=== PATIENT | male | born 1955 | race Caucasian/White ===

== ENCOUNTER 2019-02-01 15:41 | Observation (INO) | payer OTHER ==
[2019-02-01] MEDS ORDERED: ASPIRIN 81 MG CHEWABLE TABLET ONE (16:00)
[2019-02-01] MEDS ORDERED: NA CHLORIDE 0.9% 1,000 ML ONE (16:00)
--- NOTE | 2019-02-01 16:02 | EDPHYS ---
Physician Documentation [facility] Name: Frank Chowdhury Age: 63 yrs Sex: Male : 1955 Arrival Date: 02/01/2019 Time: 15:38 Bed 27 Private MD: ED Physician Herb Albright HPI: 02/01 15:53 This 63 yrs old Male presents to ER via EMS with complaints of Palpitations, daniela Shoulder Pain. 15:53 The patient presents with a history of irregular heart beat, heart skipping beats. daniela Context: The symptoms occur with light activity. Onset: The symptoms/episode began/occurred just prior to arrival, this morning. Duration: The patient or guardian reports multiple episodes, with no pattern. Modifying factors: The symptoms are aggravated by nothing. The symptoms are alleviated by nothing. Associated signs and symptoms: The patient has no apparent associated signs or symptoms. Severity of symptoms: At their worst the symptoms were mild in the emergency department the symptoms are unchanged. The patient has not experienced similar symptoms in the past. Historical: - Allergies: 15:56 No Known Allergies; sv - PMHx: 15:56 Bipolar disorder; sv - Immunization history:: Adult Immunizations up to date. - Social history:: Smoking status: Patient uses tobacco products, smokes 1.5 packs per day. - Ebola Screening: : No symptoms or risks identified at this time. - Family history:: not pertinent. ROS: 15:53 Constitutional: Negative for fever, chills, and weight loss, Eyes: Negative for injury, daniela pain, redness, and discharge, ENT: Negative for injury, pain, and discharge, Neck: Negative for injury, pain, and swelling, Respiratory: Negative for shortness of breath, cough, wheezing, and pleuritic chest pain, Abdomen/GI: Negative for abdominal pain, nausea, vomiting, diarrhea, and constipation, Back: Negative for injury and pain, : Negative for injury, bleeding, discharge, and swelling, MS/Extremity: Negative for injury and deformity, Skin: Negative for injury, rash, and discoloration, Neuro: Negative for headache, weakness, numbness, tingling, and seizure, Psych: Negative for depression, anxiety, suicide ideation, homicidal ideation, and hallucinations, Allergy/Immunology: Negative for hives, rash, and allergies, Endocrine: Negative for neck swelling, polydipsia, polyuria, polyphagia, and marked weight changes, Hematologic/Lymphatic: Negative for swollen nodes, abnormal bleeding, and unusual bruising. 15:53 Cardiovascular: Positive for chest pain, of the chest. Exam: 15:53 Constitutional: This is a well developed, well nourished patient who is awake, alert, daniela and in no acute distress. Head/Face: Normocephalic, atraumatic. Eyes: Pupils equal round and reactive to light, extra-ocular motions intact. Lids and lashes normal. Conjunctiva and sclera are non-icteric and not injected. Cornea within normal limits. Periorbital areas with no swelling, redness, or edema. ENT: Nares patent. No nasal discharge, no septal abnormalities noted. Tympanic membranes are normal and external auditory canals are clear. Oropharynx with no redness, swelling, or masses, exudates, or evidence of obstruction, uvula midline. Mucous membranes moist. Neck: Trachea midline, no thyromegaly or masses palpated, and no cervical lymphadenopathy. Supple, full range of motion without nuchal rigidity, or vertebral point tenderness. No Meningismus. Chest/axilla: Normal chest wall appearance and motion. Nontender with no deformity. No lesions are appreciated. Cardiovascular: Regular rate and rhythm with a normal S1 and S2. No gallops, murmurs, or rubs. Normal PMI, no JVD. No pulse deficits. Respiratory: Lungs have equal breath sounds bilaterally, clear to auscultation and percussion. No rales, rhonchi or wheezes noted. No increased work of breathing, no retractions or nasal flaring. Abdomen/GI: Soft, non-tender, with normal bowel sounds. No distension or tympany. No guarding or rebound. No evidence of tenderness throughout. Back: No spinal tenderness. No costovertebral tenderness. Full range of motion. Male : Normal genitalia with no discharge or lesions. Skin: Warm, dry with normal turgor. Normal color with no rashes, no lesions, and no evidence of cellulitis. MS/ Extremity: Pulses equal, no cyanosis. Neurovascular intact. Full, normal range of motion. Neuro: Awake and alert, GCS 15, oriented to person, place, time, and situation. Cranial nerves II-XII grossly intact. Motor strength 5/5 in all extremities. Sensory grossly intact. Cerebellar exam normal. Normal gait. Psych: Awake, alert, with orientation to person, place and time. Behavior, mood, and affect are within normal limits. 15:53 Musculoskeletal/extremity: DVT Exam: No signs of deep vein thrombosis. no pain, no swelling, no tenderness, negative Homans' sign noted on exam, no appreciated bluish discoloration, no erythema, no increased warmth. Vital Signs: 15:35 BP 156 / 89; Pulse 96; Resp 17; Temp 98.5; Pulse Ox 98% ; Weight 78.47 kg; Height 6 ft. sv 0 in. (182.88 cm); Pain 0/10; 16:00 BP 131 / 83; Pulse 82; Resp 16; Pulse Ox 97% on R/A; sv 17:05 BP 139 / 81; Pulse 83; Resp 19; Temp 98.6; Pulse Ox 97% on R/A; sv 15:35 Body Mass Index 23.46 (78.47 kg, 182.88 cm) sv MDM: 15:38 Patient medically screened. [facility] 15:58 Data reviewed: vital signs, nurses notes, lab test result(s), EKG, radiologic studies, daniela plain films. 02/01 15:39 Order name: Basic Metabolic Panel; Complete Time: 17:10 02/01 15:39 Order name: CBC with Diff; Complete Time: 17:10 02/01 15:39 Order name: LFT's; Complete Time: 17:10 02/01 15:39 Order name: Magnesium; Complete Time: 17:10 02/01 15:39 Order name: NT PRO-BNP; Complete Time: 17:10 02/01 15:39 Order name: PT-INR; Complete Time: 17:10 02/01 15:39 Order name: Troponin (emerg Dept Use Only); Complete Time: 17:10 02/01 15:39 Order name: XRAY Chest (1 view); Complete Time: 17:10 02/01 15:40 Order name: TSH; Complete Time: 17:10 [facility] 02/01 15:41 Order name: Lipase; Complete Time: 17:10 [facility] 02/01 15:53 Order name: [place]; Complete Time: 17:10 [facility] 02/01 16:55 Order name: Urine Dipstick--Ancillary (enter results) 02/01 17:22 Order name: Urine Dipstick-Ancillary EDMS 02/01 15:39 Order name: EKG; Complete Time: 15:44 sv 02/01 15:39 Order name: Cardiac monitoring; Complete Time: 15:42 sv 02/01 15:39 Order name: EKG - Nurse/Tech; Complete Time: 15:42 sv 02/01 15:39 Order name: IV Saline Lock; Complete Time: 15:42 sv 02/01 15:39 Order name: Labs collected and sent; Complete Time: 15:42 sv 02/01 15:39 Order name: O2 Per Protocol; Complete Time: 15:42 sv 02/01 15:39 Order name: O2 Sat Monitoring; Complete Time: 15:42 sv 02/01 15:41 Order name: Urine Dipstick-Ancillary (obtain specimen); Complete Time: 16:32 [facility] Administered Medications: 15:53 Drug: NS 0.9% 1000 ml Route: IV; Rate: 125 ml/hr; Site: left hand; sv 17:24 Follow up: Response: No adverse reaction; IV Status: Infusion continued upon admission sv 15:53 Drug: Aspirin Chewable Tablet 162 mg Route: PO; sv 16:09 Follow up: Response: No adverse reaction sv 16:33 Drug: Lovenox 1 mg/kg Route: Sub-Q; Site: left lower abdomen; sv 16:46 Follow up: Response: No adverse reaction sv 16:33 Drug: Pepcid 20 mg Route: IVP; Site: left hand; sv 16:46 Follow up: Response: No adverse reaction sv 16:34 Drug: Lopressor 25 mg Route: PO; sv 16:46 Follow up: Response: No adverse reaction sv Disposition: 02/01/19 16:01 Hospitalization ordered by Joao Troncoso for Observation. Preliminary diagnosis are Chest pain, unspecified, Palpitations, Tobacco abuse counseling, Tobacco use. - Bed requested for Telemetry/MedSurg (observation). - Status is Observation. sv - Condition is Stable. - Problem is new. - Symptoms have improved. UTI on Admission? No Signatures: Dispatcher [employer] EDMS Kezia Zarate RN RN sv Woody, Diana, RN RN dw Anderson, Corey, MD MD cha Corrections: (The following items were deleted from the chart) 17:15 16:01 Hospitalization Ordered by Joao Troncoso MD for Observation. Preliminary diagnosis dw is Chest pain, unspecified; Palpitations; Tobacco abuse counseling; Tobacco use. Bed requested for Telemetry/MedSurg (observation). Status is Observation. Condition is Stable. Problem is new. Symptoms have improved. UTI on Admission? No. daniela 17:48 17:15 02/01/2019 16:01 Hospitalization Ordered by Joao Troncoso MD for Observation. sv Preliminary diagnosis is Chest pain, unspecified; Palpitations; Tobacco abuse counseling; Tobacco use. Bed requested for Telemetry/MedSurg (observation). Status is Observation. Condition is Stable. Problem is new. Symptoms have improved. UTI on Admission? No. dw
--- NOTE | 2019-02-01 16:02 | ER ---
Nurse's Notes [facility] Name: Frank Chowdhury Age: 63 yrs Sex: Male : 1955 Arrival Date: 02/01/2019 Time: 15:38 Bed 27 Private MD: Diagnosis: Chest pain, unspecified;Palpitations;Tobacco abuse counseling;Tobacco use Presentation: 02/01 15:32 Presenting complaint: EMS states: palpitations, dull in between shoulder pain started sv today. Pt was diaphoretic on scene. BP 168/98 HR-118 ST 96% RA, before arrival to ER O2 sat was 93% and was placed on O2 NC, 20G L hand. Transition of care: patient was not received from another setting of care. Onset of symptoms was February 01, 2019. Risk Assessment: Do you want to hurt yourself or someone else? Patient reports no desire to harm self or others. Initial Sepsis Screen: Does the patient meet any 2 criteria? No. Patient's initial sepsis screen is negative. Does the patient have a suspected source of infection? No. Patient's initial sepsis screen is negative. Care prior to arrival: Medication(s) given: ASA, 81 mg, x 2, IV initiated. 20 GA, in the left hand, Oxygen administered. via nasal cannula, Pt reports taking a Nitro x1 before getting the ambulance. 15:32 Method Of Arrival: EMS: [facility] sv 15:39 Acuity: DICKSON 2 sv Triage Assessment: 15:35 General: Appears in no apparent distress. comfortable, slender, well developed, sv Behavior is calm, cooperative, appropriate for age. Pain: Denies pain. Neuro: Level of Consciousness is awake, alert, obeys commands, Oriented to person, place, time, situation, Moves all extremities. Full function Speech is normal. Cardiovascular: Reports palpitations. Respiratory: Respiratory effort is even, unlabored, Respiratory pattern is regular, symmetrical. Derm: Skin is pink, warm \T\ dry. Historical: - Allergies: 15:56 No Known Allergies; sv - PMHx: 15:56 Bipolar disorder; sv - Immunization history:: Adult Immunizations up to date. - Social history:: Smoking status: Patient uses tobacco products, smokes 1.5 packs per day. - Ebola Screening: : No symptoms or risks identified at this time. - Family history:: not pertinent. Screenin:40 Abuse screen: Denies threats or abuse. Denies injuries from another. Nutritional sv screening: No deficits noted. Tuberculosis screening: No symptoms or risk factors identified. Fall Risk None identified. Assessment: 16:33 Reassessment: Patient appears in no apparent distress at this time. No changes from sv previously documented assessment. Patient and/or family updated on plan of care and expected duration. Pain level reassessed. Patient is alert, oriented x 3, equal unlabored respirations, skin warm/dry/pink. Family at the bedside. Vital Signs: 15:35 BP 156 / 89; Pulse 96; Resp 17; Temp 98.5; Pulse Ox 98% ; Weight 78.47 kg; Height 6 ft. sv 0 in. (182.88 cm); Pain 0/10; 16:00 BP 131 / 83; Pulse 82; Resp 16; Pulse Ox 97% on R/A; sv 17:05 BP 139 / 81; Pulse 83; Resp 19; Temp 98.6; Pulse Ox 97% on R/A; sv 15:35 Body Mass Index 23.46 (78.47 kg, 182.88 cm) sv ED Course: 15:38 Patient arrived in ED. sv 15:38 Herb Albright MD is Attending Physician. daniela 15:38 Kezia Zarate, EMMANUEL is Primary Nurse. sv 15:39 Triage completed. sv 15:40 EKG done, by technologies division chair. reviewed by Herb Albright MD. at1 15:40 Initial lab(s) drawn, by ED staff, sent to lab. sv 15:40 Arm band placed on. sv 15:40 Patient has correct armband on for positive identification. Placed in gown. Bed in low sv position. Call light in reach. Side rails up X2. telemetry monitor on. Pulse ox on. NIBP on. Door closed. Head of bed elevated. 16:00 Joao Troncoso MD is Hospitalizing Provider. daniela 16:02 Awaiting lab results, Awaiting radiology results. sv 16:02 X-ray(s) taken. sv 16:10 X-ray completed. Portable x-ray completed in exam room. Patient tolerated procedure mh1 well. 16:11 XRAY Chest (1 view) In Process Unspecified. EDMS 17:06 Awaiting bed assignment. sv 17:23 Urine Dipstick--Ancillary (enter results) Sent. sv 17:28 No provider procedures requiring assistance completed. Patient admitted, IV remains in sv place. intact. Administered Medications: 15:53 Drug: NS 0.9% 1000 ml Route: IV; Rate: 125 ml/hr; Site: left hand; sv 17:24 Follow up: Response: No adverse reaction; IV Status: Infusion continued upon admission sv 15:53 Drug: Aspirin Chewable Tablet 162 mg Route: PO; sv 16:09 Follow up: Response: No adverse reaction sv 16:33 Drug: Lovenox 1 mg/kg Route: Sub-Q; Site: left lower abdomen; sv 16:46 Follow up: Response: No adverse reaction sv 16:33 Drug: Pepcid 20 mg Route: IVP; Site: left hand; sv 16:46 Follow up: Response: No adverse reaction sv 16:34 Drug: Lopressor 25 mg Route: PO; sv 16:46 Follow up: Response: No adverse reaction sv Outcome: 16:01 Decision to Hospitalize by Provider. daniela 17:28 Admitted to Tele accompanied by kirill, family with patient, via stretcher, room 407, sv with chart, Report called to Soraida BENITEZ 17:28 Condition: stable 17:28 Instructed on the need for admit. 17:48 Patient left the ED. sv Signatures: Dispatcher [employer] Kezia Alicea RN RN Herb Albright MD MD cha Harvey, Martha 1 Sarah Mcguire, filing and polishing supervisor EKG Tat1 Corrections: (The following items were deleted from the chart) 16:00 15:32 Care prior to arrival: None. sv sv
[2019-02-01 16:03] LABS: Absolute Lymphocytes (CBC) 2.6 K/uL (0.7-4.9); Absolute Monocytes 0.8 K/uL (0.1-1.3); Absolute Neutrophil 6.5 K/uL (1.8-8.0); Basophils % 0.9 % (0-1.3); Eosinophils % 1.9 % (0-4.4); Hematocrit 41.7 % (39.6-49.0); Lymphocytes % 25.5 % (15.3-44.8); MPV 7.9 fL (7.6-11.3); Monocytes % 7.8 % (3.3-12.3); RBC Red Blood Cell Count 4.25 M/uL (4.33-5.43)
[2019-02-01 16:06] LABS: Protime INR 0.89
--- NOTE | 2019-02-01 16:24 | RAD REPORT ---
EXAM DESCRIPTION: RAD - Chest Single View - 02/01/2019 4:10 pm CLINICAL HISTORY: PALPITATIONS Chest pain. COMPARISON: No comparisons FINDINGS: Portable technique limits examination quality. The lungs are mildly emphysematous but grossly clear. The heart is normal in size. No displaced fract ures. IMPRESSION: No acute intrathoracic process suspected.
[2019-02-01 16:31] LABS: ALT/SGPT 22 U/L (12-78); AST/SGOT 13 U/L (15-37); Alkaline Phosphatase 118 U/L (45-117); BUN Blood Urea Nitrogen 18 mg/dL (7-18); Bicarbonate 26 mmol/L (21-32); Bilirubin Direct < 0.1 mg/dL (0-0.2); Bilirubin Total 0.3 mg/dL (0.2-1.0); Glucose Level 104 mg/dL (74-106); Lipase 180 U/L (73-393); Magnesium 2.2 mg/dL (1.8-2.4); NT PRO-BNP 151 pg/mL (<125); Potassium 3.5 mmol/L (3.5-5.1); Protein, Total 7.7 g/dL (6.4-8.2); Sodium Level 141 mmol/L (136-145); Troponin (Emerg Dept Use Only) 0.04 ng/mL (0.0-0.045)
[2019-02-01] MEDS ORDERED: ENOXAPARIN 80 MG/0.8 ML SQ ONE (16:35)
[2019-02-01] MEDS ORDERED: METOPROLOL TAR 25 MG TAB ONE (16:35)
[2019-02-01] MEDS ORDERED: FAMOTIDINE 20 MG/2 ML VIAL IV ONE (16:36)
--- NOTE | 2019-02-01 16:47 | P.HP ---
Certification for Inpatient Patient admitted to: Observation With expected LOS: <2 Midnights Practitioner: I am a practitioner with admitting privileges, knowledge of patient current condition, hospital course, and medical plan of care. Services: Services provided to patient in accordance with Admission requirements found in Title 42 Section 412.3 of the Code of Federal Regulations Patient History Date of Service: 02/01/19 Reason for admission: Chest pain History of Present Illness: This is a 63 yr old current smoker male with a history of bipolar disorder admitted for chest pain and palpitations. The patient, palpitations started this morning along with chest discomfort. He has been cutting down on caffeine , but continues to smoke 1 1/2 pack per day for 30+ years. He came to the ER to get his chest pain and palpitations evaluated. In the ER, initial VS were BP of 156/89, HR of 96, RR 17, Afeb at 98.5, 98% on RA. He has a BMI of 23.46. His lab work was remarkable for a troponin of 0.04 , other rodríguez was normal. CXR with emphysematous changes. At the time of my exam, he was AAOx3, in no acute distress and was HDS. He was admitted for chest pain, R/O ACS. Allergies No Known Allergies Allergy (Verified 02/01/19 16:42) Home medications list reviewed: Yes - Past Medical/Surgical History -: Bipolar Disease - Family History Father -: Heart disease Mother -: Other (see notes) Notes: alzheimers - Social History Smoking Status: Current every day smoker Review of Systems 10-point ROS is otherwise unremarkable Physical Examination - Physical Exam General: Alert, In no apparent distress, Oriented x3 HEENT: Atraumatic, PERRLA, Mucous membr. moist/pink, EOMI, Sclerae nonicteric Neck: Supple, 2+ carotid pulse no bruit, No LAD, Without JVD or thyroid abnormality Respiratory: Clear to auscultation bilaterally, Normal air movement Cardiovascular: Regular rate/rhythm, Normal S1 S2 Gastrointestinal: Normal bowel sounds, No tenderness Musculoskeletal: No tenderness Integumentary: No rashes Neurological: Normal gait, Normal speech, Normal strength at 5/5 x4 extr, Normal tone, Normal affect Lymphatics: No axilla or inguinal lymphadenopathy - Studies Laboratory Data (last 24 hrs) 02/01/19 15:48: PT 10.5, INR 0.89 02/01/19 15:48: WBC 10.2, Hgb 14.4, Hct 41.7, Plt Count 291 02/01/19 15:48: Sodium 141, Potassium 3.5, BUN 18, Creatinine 1.18, Glucose 104 , Magnesium 2.2, Total Bilirubin 0.3, AST 13 L, ALT 22, Alkaline Phosphatase 118 H, Lipase 180 Assessment and Plan - Problems (Diagnosis) (1) Chest pain, rule out acute myocardial infarction Current Visit: Yes Status: Acute Plan: Risk factors: Age, Smoking history, - Chest pain Guideline: BB, Statin, ASA, plavix - Morphine and nitro prn pain. - Trend troponins x 2 - ECHO ordered, pending - Stress test - Cardiology consult - NPO after midnight. (2) Nicotine dependence Current Visit: Yes Status: Acute Plan: Counseled on Smoking cessation Qualifiers: Nicotine product type: cigarettes Substance use status: uncomplicated Qualified Code(s): F17.210 - Nicotine dependence, cigarettes, uncomplicated (3) Bipolar disease, chronic Current Visit: No Status: Chronic Plan: Stable [place] levels pending Will restart home medications. - Plan Admit to floor with tele, pending cardiology workup. Anticipate discharge in the next 24 hr. - Advance Directives Does patient have a Living Will: No Does patient have a Durable POA for Healthcare: No
[2019-02-01 17:20] LABS: Urine Blood NEGATIVE (NEG); Urine Glucose NEGATIVE (NEG); Urine Protein 1+ (NEG)
[2019-02-01] MEDS ORDERED: MORPHINE 2 MG/ML SYR IV PRN (18:00)
[2019-02-01] MEDS ORDERED: NITROGLYCERIN 0.4 MG/TAB SL PRN (18:00)
[2019-02-01] MEDS: METOPROLOL TAR 25 MG TAB PO SCH (18:00)
[2019-02-01] MEDS ORDERED: ALBUTEROL 2.5 MG/3 ML NEB SOL NEB PRN (18:00)
[2019-02-01] MEDS ORDERED: KCL 20 MEQ/100 mL IVPB 20 MEQ/100 ML BAG IV SCH (20:00)
[2019-02-01] MEDS ORDERED: POTASSIUM 25 MEQ EFFERV TAB PO ONE (20:31)
[2019-02-01] MEDS ORDERED: ATORVASTATIN 40 MG TAB PO SCH (21:00)
[2019-02-02] MEDS: METOPROLOL TAR 25 MG TAB PO SCH (05:09)
[2019-02-02 06:21] LABS: Absolute Lymphocytes (CBC) 2.4 K/uL (0.7-4.9); Absolute Monocytes 0.7 K/uL (0.1-1.3); Absolute Neutrophil 4.4 K/uL (1.8-8.0); Basophils % 0.9 % (0-1.3); Eosinophils % 2.3 % (0-4.4); Hematocrit 39.5 % (39.6-49.0); Lymphocytes % 30.9 % (15.3-44.8); MPV 8.2 fL (7.6-11.3); Monocytes % 8.9 % (3.3-12.3); RBC Red Blood Cell Count 4.03 M/uL (4.33-5.43)
[2019-02-02 06:38] LABS: Albumin 3.5 g/dL (3.4-5.0); Bilirubin Total 0.4 mg/dL (0.2-1.0); Phosphorus 2.8 mg/dL (2.5-4.9); Potassium 4.5 mmol/L (3.5-5.1); Protein, Total 7.1 g/dL (6.4-8.2)
--- NOTE | 2019-02-02 07:18 | EKG ---
Test Date: 2019-02-01 Test Time: 15:38:05 Sole Filler: CHERI MEASUREMENT RESULTS: Intervals: Rate: 95 OK: 134 QRSD: 84 QT: 360 QTc: 452 [place]: P: 73 OK: 134 QRS: 80 T: 19 INTERPRETIVE STATEMENTS: Normal sinus rhythm ST abnormality, possible digitalis effect Abnormal ECG No previous ECG available for comparison Electronically Signed On 02-02-19 07:15:47 CDT by Ean Blandon
[2019-02-02] MEDS ORDERED: ASPIRIN EC 81 MG TAB PO SCH (09:00)
[2019-02-02] MEDS ORDERED: CLOPIDOGREL 75 MG TABLET PO SCH (09:00)
[2019-02-02] MEDS ORDERED: REGADENOSON 0.4 MG/5 ML SYR IV ONE (09:33)
--- NOTE | 2019-02-02 11:58 | P.SSS ---
Patient History Date of Service: 02/02/19 Reason for admission: Chest pain History of Present Illness: This is a 63 yr old current smoker male with a history of bipolar disorder admitted for chest pain and palpitations. The patient, palpitations started this morning along with chest discomfort. He has been cutting down on caffeine , but continues to smoke 1 1/2 pack per day for 30+ years. He came to the ER to get his chest pain and palpitations evaluated. In the ER, initial VS were BP of 156/89, HR of 96, RR 17, Afeb at 98.5, 98% on RA. He has a BMI of 23.46. His lab work was remarkable for a troponin of 0.04 , other rodríguez was normal. CXR with emphysematous changes. At the time of my exam, he was AAOx3, in no acute distress and was HDS. He was admitted for chest pain, R/O ACS. Allergies No Known Allergies Allergy (Verified 02/01/19 16:42) Home medications list reviewed: Yes Home Medications: Aspirin [Aspir-Low] 81 mg PO DAILY #30 tablet. 02/02/19 Atorvastatin Calcium [Lipitor] 40 mg PO BEDTIME #30 tab 02/02/19 Clopidogrel Bisulfate [Plavix] 75 mg PO DAILY #30 tablet 02/02/19 Metoprolol Tartrate [Lopressor*] 25 mg PO BID 6AM 6PM #60 tab 02/02/19 - Past Medical/Surgical History Has patient received pneumonia vaccine in the past: No Diabetic: No -: Bipolar Disease - Family History Father -: Heart disease Mother -: Other (see notes) Notes: alzheimers - Social History Smoking Status: Current every day smoker Alcohol use: No CD- Drugs: No Caffeine use: No Place of Residence: Home Review of Systems 10-point ROS is otherwise unremarkable Physical Examination - Vital Signs Temperature: 97.9 F Blood Pressure: 136/93 Pulse: 74 Respirations: 18 Pulse Ox (%): 95 - Physical Exam General: Alert, In no apparent distress, Oriented x3 HEENT: Atraumatic, PERRLA, Mucous membr. moist/pink, EOMI, Sclerae nonicteric Neck: Supple, 2+ carotid pulse no bruit, No LAD, Without JVD or thyroid abnormality Respiratory: Clear to auscultation bilaterally, Normal air movement Cardiovascular: Regular rate/rhythm, Normal S1 S2 Gastrointestinal: Normal bowel sounds, No tenderness Musculoskeletal: No tenderness Integumentary: No rashes Neurological: Normal gait, Normal speech, Normal strength at 5/5 x4 extr, Normal tone, Normal affect Lymphatics: No axilla or inguinal lymphadenopathy - Studies Laboratory Data (last 24 hrs) 02/01/19 15:48: PT 10.5, INR 0.89 02/01/19 15:48: WBC 10.2, Hgb 14.4, Hct 41.7, Plt Count 291 02/01/19 15:48: Sodium 141, Potassium 3.5, BUN 18, Creatinine 1.18, Glucose 104 , Magnesium 2.2, Total Bilirubin 0.3, AST 13 L, ALT 22, Alkaline Phosphatase 118 H, Lipase 180 - Diagnosis (Problem(s)) (1) Chest pain, rule out acute myocardial infarction Status: Acute (2) Nicotine dependence Status: Acute Qualifiers: Nicotine product type: cigarettes Substance use status: uncomplicated Qualified Code(s): F17.210 - Nicotine dependence, cigarettes, uncomplicated (3) Bipolar disease, chronic Status: Chronic (4) Abnormal stress test Status: Acute Treatment Summary: Patient was admitted for chest pain rule out. ACS was ruled out with normal echocardiogram, negative troponins x3. Cardiology was consulted. His chest pain resolved. His palpitations also resolved. His tele monitor was reviewed, no abnormalities noted. He was then cleared for discharge from cardiology point of view. His blood pressure was elevated throughout the stay. It responded well to metoprolol. His stress test was positive for moderate stress induced ischemia in apex. Patient was given the option to wait the weekend for cath on Tuesday vs going home and getting outpatient cath next week. patient decided he wanted to go home. Cardiology was okay with this (discussed via Telephone by nurse). He was discharged home on a beta jennifer, atorvastatin, asa, plavix. He will follow up with cardiology at the beginning of next week for further outpatient cath/workup. Prior to discharge, he was alert oriented x3, in no acute distress and symptom- free. His treatment plan and diagnoses were explained to him. All questions were answered and patient was then discharged home in a safe and stable manner. He was asked to follow up with the flatwork presser and his primary care physician. - Disposition Discharge Date: 02/02/19 Disposition: ROUTINE DISCHARGE Condition: GOOD Consultations: Cardiology Patient Discharge Instructions: Please follow up with the primary care physician in 2-3 days. Please follow up with cardiology in 1 weeks. New medications: Metoprolol, blood pressure medication. Atorvastatin, cholesterol medication. Please return to the emergency room for worsening symptoms Diet: AHA Activity: Ad shashank Time Spent Managing Pts Care (In Minutes): 45
--- NOTE | 2019-02-02 12:34 | CON ---
Date of Consultation: 02/02/2019 Reason For Consultation: Palpitation and chest pain. History Of Present Illness: Mr. Chowdhury is a 63-year-old white male with history of bipolar disorder, tobacco abuse. Has been having some shortness of breath for a few weeks. Came in with chest pain t hat is sharp, stabbing, mostly in the upper chest, left shoulder area with some palpitation. Symptom s were not exertional. No nausea, vomiting, diaphoresis, PND, orthopnea, pedal edema, palpitations, or syncope. Past Medical History: Negative otherwise. Review of Systems: Negative. Social History: Positive for tobacco. Family History: Positive for heart disease on his dad's side and his brother side. Allergies: NONE. Home Medications: None. Physical Examination: Vital Signs: Blood pressure is 178/50, otherwise vital signs stable. Sinus rhythm. HEENT: Negative . Neck: Supple with no bruit. Chest: Clear to auscultation and percussion. Cardiac: Revealed a regular rhythm and rate. No murmurs, gallops, or rubs. Abdomen: Benign. Extremities: Revealed no clubbing, cyanosis, or edema. Diagnostic Data: All normal. Impression And Plan: 1.Atypical chest pain. 2.Shortness of breath. 3.Tobacco abuse. 4.Bipolar disorder. 5.Family history of heart disease. 6.Hypertension systolic, poorly controlled. The patient may benefit from low-dose beta jennifer, but meanwhile we will get an echocardiogram and L exiscan on him to rule out coronary artery disease, cardiomyopathy. ADARSH/MARCY Voice ID: [id number] Report ID: [id number]
--- NOTE | 2019-02-02 12:52 | RAD REPORT ---
EXAM DESCRIPTION: NM - Rest Stress Cardiac Imaging - 02/02/2019 12:39 pm CLINICAL HISTORY: CP Chest pain. COMPARISON: No comparisons TECHNIQUE: The patient was administered approximately 10mCi of Tc 99m Sestamibi prior to resting SPE CT imaging of the heart. The patient was then administered approximately 30 mCi of Tc 99m Sestamibi f ollowing exercise or pharmacologic stress. Multiplanar SPECT images were reviewed. FINDINGS: Areas of diminished radiopharmaceutical accumulation with stress seen involving the LV ape x and inferior wall. Within this region there are small foci of fixed rest and stress defects present likely indicating scar tissue. The end diastolic volume is 111 ml, the end systolic volume is 56 ml, and the ejection fraction is 49 %. IMPRESSION: Moderate stress-induced ischemia suspected along the LV apex and inferior wall.
--- NOTE | 2019-02-05 10:14 | ECHO ---
HEIGHT: 0 ft 6 in WEIGHT: 173 lb 0 oz DATE OF STUDY: 02/02/[address]: Joao Troncoso MD 2-DIMENSIONAL: YES M.MODE: YES DOPPLER: YES COLOR FLOW: YES TDS: NO PORTABLE: NO DEFINITY: NO BUBBLE STUDY: NO DIAGNOSIS: CHEST PAIN CARDIAC HISTORY: CATHERIZATION: NO SURGERY: NO PROSTHETIC VALVE: NO PACEMAKER: NO MEASUREMENTS (cm) DIASTOLIC (NORMALS) SYSTOLIC (NORMALS) IVSd 1.2 (0.6-1.2) LA Diam (1.9-4.0) LVEF 50% LVIDd 4.4 (3.5-5.7) LVIDs 3.3 (2.0-3.5) %FS 25% LVPWd 1.3 (0.6-1.2) Ao Diam 2.6 (2.0-3.7) 2 DIMENSIONAL ASSESSMENT: RIGHT ATRIUM: NORMAL LEFT ATRIUM: NORMAL RIGHT VENTRICLE: NORMAL LEFT VENTRICLE: NORMAL TRICUSPID VALVE: NORMAL MITRAL VALVE: NORMAL PULMONIC VALVE: NORMAL AORTIC VALVE: NORMAL PERICARDIAL EFFUSION: NONE AORTIC ROOT: NORMAL LEFT VENTRICULAR WALL MOTION: NORMAL. DOPPLER/COLOR FLOW: NORMAL. COMMENTS: NORMAL 2D ECHO WITH DOPPLER. NO WALL MOTION ABNORMALITY. NO EFFUSION. TECHNOLOGIST: MAGALYS KILPATRICK
--- NOTE | 2019-02-05 10:33 | TREADPHA ---
DX: CHEST PAIN Date of Study: 02/02/19 Ht: 0 6 Wt: 173 lb 0 oz Consulting Physician: MAGALYS MEDICATIONS: PROVENTIL, ASPIRIN, LIPITOR, PLAVIX, LOPRESSOR, MORPHINE, NITROSTAT HISTORY: 63 YEAR OLD MALE HERE FOR CHEST PAIN. HISTORY OF BI-POLAR PHYSICIAL EXAMINATION: RESTING B.P.: 167/100 RESTING H.R.: 72 RESTING EKG: NORMAL PROTOCOL: LEXISCAN EXERCISE TIME: 3:30 B.P. AT PEAK STRESS: 157/90 IMPRESSION: LEXISCAN STRESS TEST PERFORMED. CARDIOLITE INJECTED PER PROTOCOL. RARE PREMATURE VENTRICULAR COMPLEXES NOTED PRE/POST STRESS TEST. DENIES ANY PAIN. SEE NUCLEAR MEDICINE REPORT.
== END 2019-02-02 15:45 | disposition home or self-care (01) ==
LOC: ER 15:41 → ERHOLD 16:37 → 4TH 17:28
PROVIDERS: ADMIT Family Medicine; ATTEND Family Medicine
DX: R07.89 Other chest pain (principal); R06.02 Shortness of breath; R94.39 Abnormal result of other cardiovascular function study; R94.31 Abnormal electrocardiogram [ECG] [EKG]; I10 Essential (primary) hypertension; F31.9 Bipolar disorder, unspecified; F17.210 Nicotine dependence, cigarettes, uncomplicated; Z82.49 Family history of ischemic heart disease and other diseases of the circulatory system
CPT/HCPCS: 96361; 93005; 93017; 93306; 85025 ×2; 80048; 36415; 83735; 84100; 85610; 80061; 80178; 80076; 84443; 81003; 84484 ×3; 83690; 80053; 83880; 71045; 78452; 96372; 96374; 99285; J1650; J2270; J2785; J7030; A9500; G0378 ×2

== ENCOUNTER 2023-11-14 07:00 | Day surgery (SDC) | payer OTHER ==
[2023-11-11 14:04] LABS: Absolute Basophils 0.2 K/uL (0-0.5); Absolute Eosinophils 0.2 K/uL (0-0.5); Absolute Lymphocytes (CBC) 2.1 K/uL (0.7-4.9); Absolute Monocytes 0.8 K/uL (0.1-1.3); Absolute Neutrophil 4.2 K/uL (1.8-8.0); Basophils % 2.1 % (0-1.3); Eosinophils % 2.9 % (0-4.4); Hematocrit 41.8 % (39.6-49.0); Hemoglobin 14.6 g/dL (13.6-17.9); MCH 33.5 pg (27.0-35.0); MCV 95.5 fL (80-100); Monocytes % 10.5 % (3.3-12.3); Neutrophils % 56.5 % (41.7-73.7); Platelets 232 thou/uL (152-406); RBC Red Blood Cell Count 4.37 M/uL (4.33-5.43)
[2023-11-11 14:06] LABS: PT Prothrombin Time 10.9 SECONDS (9.5-12.5); PTT, Activated Partial Thromb 29.5 SECONDS (24.3-36.9); Protime INR 0.99
[2023-11-11 14:12] LABS: Anion Gap 7.1 mEq/L (5.0-15.0); Potassium 4.1 mEq/L (3.5-5.1)
--- NOTE | 2023-11-11 14:22 | RAD REPORT ---
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 Hypertension COMPARISON: <Comparisons> TECHNIQUE: PA and lateral views of the chest were obtained. FINDINGS: The lungs are clear. Heart size is normal and central vasculature is within normal limits. No pleural effusion or pneumothorax seen. No acute bony finding noted. IMPRESSION: No acute cardiopulmonary process.
[2023-11-14] MEDS ORDERED: LIDOCAINE 1% 20 ML MDV ONE (07:25)
[2023-11-14] MEDS ORDERED: HEPA 1000U/500MLS 2,000 UNIT/1,000 ML BAG IV ONE (07:25)
[2023-11-14] MEDS ORDERED: FENTANYL CITR 100 MCG/2 ML ONE (07:28)
[2023-11-14] MEDS ORDERED: TICAGRELOR 90 MG TABLET PO ONE (07:28)
[2023-11-14] MEDS ORDERED: VERAPAMIL HCL 10 MG/4 ML VIAL IV ONE (07:28)
[2023-11-14] MEDS ORDERED: HEPARIN 5000 UNIT/ML 1 ML VIAL ONE (07:28)
[2023-11-14] MEDS ORDERED: MIDAZOLAM HCL 2 MG/2 ML INJ ONE (07:28)
[2023-11-14] MEDS ORDERED: NITROGLYCERIN/D5W 50 MG/250 ML BTL IV ONE (07:28)
[2023-11-14] MEDS ORDERED: HEPARIN 10,000 UNIT/10 ML VIAL IV ONE (07:29)
[2023-11-14] MEDS ORDERED: ASPIRIN 325 MG TAB ONE (07:29)
[2023-11-14] MEDS ORDERED: CLOPIDOGREL 75 MG TABLET ONE (07:29)
[2023-11-14] MEDS ORDERED: ATROPINE SULF 1 MG/10 ML SYR IV ONE (07:30)
[2023-11-14] MEDS: NA CHLORIDE 0.9% 500 ML ONE (09:05)
[2023-11-14 09:45] VITALS: TEMP 98.1
[2023-11-14 10:21] VITALS: O2SAT 100
[2023-11-14 13:53] VITALS: BP 167/81
--- NOTE | 2023-11-14 14:26 | EKG ---
Test Date: 2023-11-11 Test Time: 13:47:47 Psychotherapist Social Worker: CAMILA MEASUREMENT RESULTS: Intervals: Rate: 71 ME: 142 QRSD: 90 QT: 400 QTc: 434 [place]: P: 80 ME: 142 QRS: 89 T: 51 INTERPRETIVE STATEMENTS: Normal sinus rhythm Normal ECG Compared to ECG 02/01/2019 15:38:05 ST (T wave) deviation no longer present Electronically Signed On 11-14-23 14:24:06 CDT by Tee Meyer
== END 2023-11-14 11:20 | disposition home or self-care (01) ==
LOC: CCL 07:00
PROVIDERS: ATTEND Internal Medicine
DX: I65.21 Occlusion and stenosis of right carotid artery (principal); I25.10 Atherosclerotic heart disease of native coronary artery without angina pectoris; I10 Essential (primary) hypertension; E78.2 Mixed hyperlipidemia; J44.9 Chronic obstructive pulmonary disease, unspecified; Z95.1 Presence of aortocoronary bypass graft; Z87.891 Personal history of nicotine dependence; Z79.82 Long term (current) use of aspirin; Z79.899 Other long term (current) drug therapy; Z82.49 Family history of ischemic heart disease and other diseases of the circulatory system
CPT/HCPCS: 93005; 85025; 80048; 36415; 85610; 85730; 71046; 36222; 76937; C1893; J2001; J2250; J3010; J7040; 99152; 99153; J0461; J1644